=== PATIENT | female | born 2000 | race Caucasian/White ===

== ENCOUNTER 2019-05-07 10:42 | Emergency (ER) | payer OTHER, SELFPAY ==
[2019-05-07 10:43] VITALS: BP 127/80; PULSE 102; RESP 19; TEMP 36.8; O2SAT 99; BMI 34.4
--- NOTE | 2019-05-07 10:52 | EKG12_ITS ---
Test Reason : CP Blood Pressure : / mmHG Vent. Rate : 091 BPM Atrial Rate : 091 BPM P-R Int : 132 ms QRS Dur : 080 ms QT Int : 340 ms P-R-T Axes : 063 032 038 degrees QTc Int : 418 ms Sinus rhythm with marked sinus arrhythmia Otherwise normal ECG Confirmed by SKY GRULLON, EVON ([id number]), school photograph editor KEN CLEMENT ([id number]) on 05/09/2019 11:07:30 AM Referred By: Confirmed By:EVON SWANSON MD
--- NOTE | 2019-05-07 10:52 | RAD_ITS ---
STUDY: X-RAY CHEST REASON FOR EXAM: Female, 18 years old. Chest pain TECHNIQUE: Frontal and lateral views of the chest COMPARISON: None. FINDINGS: The lungs are clear. There are no pleural effusions. There is no pneumothorax. The heart is normal in size. The visualized osseous structures are within normal limits. RAD/Chest PA and Lateral IMPRESSION: No acute thoracic pathology. Electronically Signed: Filemon Hunter, at 11:46 EDT Tel , Service support ,
--- NOTE | 2019-05-07 10:54 | ED.VIS.GEN ---
History of Present Illness Chief Complaint: Chest Pain Informant: Patient Onset: Hours - 1 hour Context: Sudden Onset Timing: Waxes and wanes Current Severity: Mild Maximum Severity: Moderate Narrative: Patient presents with spasm-like pain to the lower mid chest and epigastric region that started suddenly 1 hour ago. She did eat breakfast a few hours ago and states she felt well at that time. She reports having a few episodes of burping this morning but that did not seem to change her pain. When the pain gets severe she states she doubles over and has some shortness of breath. No family history of heart problems or DVT/PE. Past Medical History - Allergies and Home Meds Allergies/Adverse Reactions: Allergies No Known Allergies Allergy (Verified 05/07/19 10:47) Prior records reviewed: Yes Past Medical History: - - Reviewed Surgical History: appendectomy Lives: Spouse/ Significant Other Smoking Status: Current some day smoker Review of Systems General: Denies: Chills, Fever Eyes: Denies: Visual changes - bilaterally ENT: Denies: Bilateral ear pain Cardiovascular: Reports: Chest pain Respiratory: Reports: Dyspnea. Denies: Cough Gastrointestinal: Reports: Abdominal pain. Denies: Nausea, Vomiting Genitourinary: Denies: Dysuria Skin: Denies: Rash Neurological: Denies: Headache Hematologic: Denies: Easy bruising Allergy: Denies: Uticaria Physical Exam Vital Signs/Narrative: Vital Signs Temp Pulse Resp BP Pulse Ox 05/07/19 10:43 98.2 F 102 H 19 H 127/80 H 99 Inital Vital Signs reviewed: Yes General: Well nourished, Well developed Head: Normocephalic ENT: Moist mucous membranes Neck: Supple Cardiovascular: Regular rate, Regular rhythm Respiratory: No distress, CTA bilaterally, Chest tenderness - Lower chest tenderness over the sternum. Abdomen: Soft, Tender - Epigastric tenderness palpation. Mild tenderness in the right upper quadrant., Hypoactive bowel sounds. Negative for: Guarding, Rebound tenderness Extremities: Nontender Skin: Normal color, No rash Neurological: Alert, Oriented x3 Psychological: - - Anxious Diagnostic/Tx/Re-eval Impressions Chest X-Ray 05/07/19 10:52 IMPRESSION: No acute thoracic pathology. Electronically Signed: Filemon Hunter, at 11:46 EDT Tel , Service support , 05/07/19 10:52 Chest PA and Lateral [RAD] Stat Laboratory Results 05/07/19 05/07/19 05/07/19 10:50 10:50 10:50 WBC 7.7 RBC 4.96 Hgb 14.5 Hct 44.0 MCV 88.7 MCH 29.2 MCHC 33.0 RDW Std Deviation 41.6 RDW Coeff of Jacy 12.8 Plt Count 218 MPV 9.9 Immature Gran % (Auto) 0.300 Neut % (Auto) 56.2 Lymph % (Auto) 34.7 [place] % (Auto) 7.1 Eos % (Auto) 1.4 Baso % (Auto) 0.3 Absolute Neuts (auto) 4.3 Absolute Lymphs (auto) 2.67 Nucleated RBC % 0 Sodium 140 Potassium 3.8 Chloride 106 Carbon Dioxide 28.0 Anion Gap 6 BUN 13 Creatinine 0.81 Estim Creat Clear Calc 92.41 Est GFR (MDRD) Af Amer 117 Est GFR (MDRD) Non-Af 96 BUN/Creatinine Ratio 16.1 Glucose 80 Calcium 9.3 Total Bilirubin 0.30 Direct Bilirubin < 0.05 AST 26 ALT 49 Alkaline Phosphatase 108 Troponin I < 0.015 Total Protein 8.1 Albumin 4.0 Globulin 4.1 Lipase 129 Serum , Qual NEGATIVE - EKG Initial EKG Interpretation: Sinus Rhythm - Sinus at 91 with no acute ischemia. - Medical Decision Making Patient was initially given morphine, Zofran, and Pepcid. On repeat evaluation she reported her pain was improved but not completely resolved. She is given a GI cocktail and at this time states that the pressure sensation in her chest and upper abdomen is resolved. She will be treated with Prilosec and given some Bentyl if she develops spasms. Significant other is at bedside will be with her this afternoon. ED Disposition - Plan for ED Patient: Disposition: Home or Assisted Living Diagnosis: Epigastric pain, GERD (gastroesophageal reflux disease) Instructions: GERD (Adult) Prescriptions: Dicyclomine HCl [Bentyl] 20 mg PO TIDAC PRN #20 capsule PRN Reason: Spasms Omeprazole [Prilosec] 20 mg PO DAILY #30 capsule Referrals: Ngozi Terrell DO [Primary Care Provider] -
--- NOTE | 2019-05-07 10:55 | NURSING ---
NO OLD EKGS
[2019-05-07] MEDS: Morphine 4 MG/ML Syringe IV (11:11)
[2019-05-07] MEDS: 0.9% Normal Saline 1,000 ML 150 ML IV (11:11)
[2019-05-07] MEDS: Ondansetron 4 MG/2 ML Vial IV (11:11)
[2019-05-07 11:13] LABS: Absolute Lymphocyte Count 2.67 X10^3/uL (0.83-4.51); Absolute Neutrophil Count 4.3 X10^3/uL (2.0-7.7); Basophil# 0.02 X10^3/uL; Basophil% 0.3 % (0-1); Eosinophil# 0.11 X10^3/uL; Eosinophils% 1.4 % (0-5); Hemoglobin 14.5 g/dL (12.0-15.0); Lymphocyte # 2.67 X10^3/ul (4.0); Lymphocyte % 34.7 % (19-41); Mean Corpuscular Hgb 29.2 pg (27.0-32.0); Mean Corpuscular Volume 88.7 fL (81-99); Mean Platelet Vol. 9.9 fl (6.2-12.0); Monocyte# 0.55 X10^3/uL; Monocyte% 7.1 % (0-10); NRBC Flagged by Analyzer 0 % (0-5); Neutrophil # 4.33 X10^3/uL (2.7-7.7); Neutrophil % 56.2 % (47-70); Platelet Count 218 K/mm3 (150-450); RBC Distribution Width CV 12.8 % (11.6-14.6); RBC Distribution Width SD 41.6 fl (35.1-43.9); Red Blood Count 4.96 M/mm3 (4.2-5.4); White Blood Count 7.7 K/mm3 (4.4-11.0)
[2019-05-07 11:27] LABS: Internal QC Validated? YES +Cl - CLEAR BKGD; Pregnancy, Serum, hCG Quali. NEGATIVE Negative
[2019-05-07 11:29] LABS: BUN 13 mg/dL (7-18); Creatinine, Serum 0.81 mg/dL (0.55-1.02); Estimated Creatinine Clearance 92.41 ml/min; Glucose 80 mg/dL (74-106)
[2019-05-07 11:30] LABS: AST(SGOT) 26 U/L (15-37); Alanine Aminotransfer ALT/SGPT 49 U/L (13-56); Alkaline Phosphatase 108 U/L (45-117); Anion Gap 6 (5-15); BUN/Creat Ratio 16.1 RATIO (10-20); Bilirubin, Direct < 0.05 mg/dL (0.00-0.30); Calcium,Total 9.3 mg/dL (8.5-10.1); Chloride 106 mmol/L (98-107); EST Glomerular Filtration Rate 96 mL/min (>60); Est Glom Filt Rate - Afr Amer 117 mL/min (>60); Globulin 4.1 g/dL (2.2-4.2); Lipase 129 U/L (73-393); Potassium 3.8 mmol/L (3.5-5.1); Protein, Total 8.1 g/dL (6.4-8.2); Sodium Level 140 mmol/L (136-145)
[2019-05-07] MEDS: Famotidine 200 MG/20 ML MDV 20 MG in 0.9% Normal Saline (Pres. free 8 ML 300 MG IV (12:02)
[2019-05-07] MEDS: Mag Hydrox/Al Hydrox/Simeth 30 ML UDC PO (12:02)
[2019-05-07 12:05] VITALS: BP 100/57; PULSE 75; RESP 14; O2SAT 98
[2019-05-07 12:28] VITALS: BP 98/51; PULSE 60; RESP 15; O2SAT 98
== END 2019-05-07 12:30 | disposition home or self-care (01) ==
PROVIDERS: Emergency Provider Emergency Medicine; Family Provider Internal Medicine; PCP Internal Medicine
DX: K21.9 Gastro-esophageal reflux disease without esophagitis (principal); F17.200 Nicotine dependence, unspecified, uncomplicated
CPT/HCPCS: 71046; 80048; 80076; 83690; 84484; 84703; 85025; 93005; 96361; 96374; 96375; 99284; J7030; A4216; J2405; J3490

== ENCOUNTER 2020-01-04 18:17 | Emergency (ER) | payer OTHER, SELFPAY ==
[2020-01-04 18:19] VITALS: BP 145/53; PULSE 82; RESP 18; TEMP 36.6; O2SAT 99; BMI 39.8
--- NOTE | 2020-01-04 19:18 | ED.DCSUM_ITS ---
- ER Visit Summary Date of Service: 01/04/20 Chief Complaint: Headache History of Present Illness: The patient is a [address] Stephens. She reports that she has a history of frequent migraines. Her current headache began 3 days ago and is gradually gotten worse. The pain over the occipital region of her head that she describes as pressure. Is 10 out of 10 at worst and 9 out of 10 currently. Is worsened by movement, light, and noise. She taken ibuprofen without relief. She is been nausea and vomited twice. No blood or emesis. Reports that she has had similar headaches in the past. Patient reports that she works as a [employer]. She denies any exposure to coronavirus. She was tested 2 days ago. She does not know the results of this. She does report that she is mildly short of breath. She has not been wheezing. She denies any fever, chills, or cough. Physical Examination: Vitals: Stable. Afebrile. General: Well-nourished and well-developed. Head: Normocephalic atraumatic. Neck: Supple, no lymphadenopathy. No JVD. Nontender. Cardiovascular: Regular rate and rhythm. No murmurs. Respiratory: No respiratory distress. Clear to auscultation bilaterally. Abdominal: Soft, nontender, nondistended, normal bowel sounds. No guarding, re bound, or peritoneal signs. Back: Nontender. Extremities: Nontender, no edema. Skin: Normal color, no rash. Neurologic: Alert and oriented ?3. Cranial nerves II through XII are intact. Normal strength and sensation. Psych: Normal affect. Emergency Department Course and Treatment: Patient had an IV placed. She was given Reglan, Benadryl, Toradol IV with significant relief. Treatment Plan: Patient will be discharged with symptomatic care. Instructed to follow-up with her primary care physician 1 to 2 days if not improving. Return to the emergency department for any worsening symptoms. Disposition: To home in improved and stable condition. Impression: 1. Migraine headache, recurrent. This note was generated with [employer] software. It may contain incorrect words, spelling, and punctuation that were not noted in review of the chart prior to signing ED Disposition - Plan for ED Patient: Instructions: ED, Migraine (Classical) Prescriptions: Metoclopramide [Reglan] 10 mg PO 4X/DAY PRN #20 tablet PRN Reason: Headache Referrals: Ngozi Terrell, [Primary Care Provider] - 1-2 Days if not improving
[2020-01-04] MEDS: DiphenhydrAMINE 50 MG/ML Syringe IV (19:49)
[2020-01-04] MEDS: 0.9% Normal Saline 1,000 ML 999 ML IV (19:49)
[2020-01-04] MEDS: Metoclopramide 10 MG/2 ML Vial IV (19:49)
[2020-01-04] MEDS: Ketorolac 30 MG/ML Syringe IV (19:49)
[2020-01-04 20:02] LABS: Internal QC Validated? YES +Cl - CLEAR BKGD; Pregnancy, Serum, hCG Quali. NEGATIVE Negative
[2020-01-04 20:32] VITALS: BP 105/83; PULSE 75; RESP 20; O2SAT 99
== END 2020-01-04 20:37 | disposition home or self-care (01) ==
LOC: ED 18:52
PROVIDERS: Emergency Provider Emergency Medicine; PCP Internal Medicine
DX: G43.909 Migraine, unspecified, not intractable, without status migrainosus (principal)
CPT/HCPCS: 84703; 96361; 96374; 96375; 99283; J7030; A4216

== ENCOUNTER 2020-03-10 01:18 | Emergency (ER) | payer OTHER, SELFPAY ==
[2020-03-10 01:19] VITALS: BP 131/84; PULSE 89; PULSE 95; RESP 19; TEMP 37.1; O2SAT 99; BMI 17.5
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
[2020-03-10] MEDS: Naproxen 500 MG Tablet PO (02:16)
[2020-03-10 02:48] VITALS: BP 119/59; PULSE 96; RESP 95; O2SAT 16
== END 2020-03-10 02:49 | disposition home or self-care (01) ==
PROVIDERS: Emergency Provider Emergency Medicine; PCP Internal Medicine
DX: S16.1XXA Strain of muscle, fascia and tendon at neck level, initial encounter (principal); S60.219A Contusion of unspecified wrist, initial encounter; V49.88XA Car occupant (driver) (passenger) injured in other specified transport accidents, initial encounter; Y93.89 Activity, other specified; Y92.414 Local residential or business street as the place of occurrence of the external cause
CPT/HCPCS: 72040; 73110; 73590; 99284